=== PATIENT | male | born 1960 | race Caucasian/White ===

== ENCOUNTER 2017-08-20 07:00 | Day surgery (SDC) | payer MEDICAID ==
[2017-08-20] VITALS (20 sets, daily range): BP systolic 65–118; BP diastolic 28–72
[~2017-08-20] VITALS: Ht 160 cm; Wt 119.2 kg
[2017-08-20] MEDS ORDERED: dextrose ORAL solution 15 GM/59 ML bottle PO PRN ×2 (07:25)
[2017-08-20] MEDS ORDERED: dextrose 50%-water 50ml dispensing syringe IV PRN ×2 (07:25)
[2017-08-20] MEDS ORDERED: insulin Lispro (HumaLOG) vial - multi-dose SQ SCH (07:25)
[2017-08-20] MEDS ORDERED: glucagon, human recombinant 1mg kit SUBCUT PRN (07:25)
[2017-08-20] MEDS ORDERED: MESSAGE TO PHARMACY PO ONE (07:25)
[2017-08-20] MEDS ORDERED: LORazepam 0.5 MG tablet PO PRN (07:30)
[2017-08-20] MEDS ORDERED: diphenhydrAMINE 25mg capsule PO PRN (07:30)
[2017-08-20] MEDS ORDERED: nitroGLYCERIN 0.4mg SUBLingual tab SL PRN ×2 (07:30→11:05)
[2017-08-20] MEDS ORDERED: IBUP-1984 PO (07:51)
[2017-08-20] MEDS ORDERED: METF10002 PO (07:51)
[2017-08-20] MEDS ORDERED: AMLO10TA4 PO (07:51)
[2017-08-20] MEDS ORDERED: POTA10CA44 PO (07:51)
[2017-08-20] MEDS ORDERED: HYDR25TA4 PO (07:51)
[2017-08-20] MEDS ORDERED: CETI10TA15 PO (07:51)
[2017-08-20] MEDS ORDERED: LISI-600 PO (07:51)
[2017-08-20] MEDS ORDERED: SIMV10TA6 PO (07:51)
[2017-08-20] MEDS ORDERED: GLIM4TAB79 PO (07:51)
[2017-08-20 08:08] LABS: BASOPHILS # (AUTO) 0.1 X10'3 (0-0.2); BASOPHILS % (AUTO) 0.8 % (0-1); EOSINOPHILS # (AUTO) 0.3 X10'3 (0-0.9); EOSINOPHILS % (AUTO) 2.4 % (0-6); HEMATOCRIT 44.5 % (42.0-52.0); HEMOGLOBIN 15.2 g/dl (14.0-17.9); LYMPHOCYTES # (AUTO) 2.8 X10'3 (1.1-4.8); LYMPHOCYTES % (AUTO) 23.9 % (21-51); MEAN CORPUSCULAR HEMOGLOBIN 29.5 PG (27.0-31.0); MEAN CORPUSCULAR HGB CONC 34.2 % (33.0-36.5); MEAN CORPUSCULAR VOLUME 86.3 FL (78-98); MEAN PLATELET VOLUME 8.2 FL (7.4-10.4); MONOCYTES # (AUTO) 0.9 X10'3 (0-0.9); MONOCYTES % (AUTO) 7.7 % (2-12); NEUTROPHILS # (AUTO) 7.7 X10'3 (1.8-7.7); NEUTROPHILS % (AUTO) 65.2 % (42-75); PLATELET COUNT 368 X10'3 (140-440); RED BLOOD COUNT 5.15 X10'6 (4.70-6.10); RED CELL DISTRIBUTION WIDTH 14.5 % (11.5-14.5); WHITE BLOOD COUNT 11.8 X10'3 (4.5-11.0)
[2017-08-20 08:25] LABS: PARTIAL THROMBOPLASTIN TIME 28 SECONDS (22-32); PROTHROMBIN TIME 10.2 SECONDS (9.0-12.0)
[2017-08-20 08:29] LABS: ALBUMIN 3.8 G/DL (3.4-5.0); ANION GAP 13 (8-16); BLOOD UREA NITROGEN 28 MG/DL (7-18); BUN/CREATININE RATIO 17.3 (5.4-32.0); CHLORIDE 102 MMOL/L (99-107); CREATININE 1.62 MG/DL (0.60-1.10); GLUCOSE 168 MG/DL (70-104); POTASSIUM 4.5 MMOL/L (3.5-5.1); SODIUM 141 MMOL/L (135-145); TOTAL CARBON DIOXIDE 26.1 MMOL/L (24-32); eGFR 44 ML/MIN
[2017-08-20] MEDS: normal saline 1000ml 1,000 ML IV SCH ×2 (08:45→12:57)
[2017-08-20] MEDS ORDERED: midazolam 2 mg/2 ml injection ONE (09:00)
[2017-08-20] MEDS ORDERED: LIDOcaine 1%/PF (10mg/ml) 5ml vial ONE (09:00)
[2017-08-20] MEDS ORDERED: fentaNYL/PF 50MCG/1 ML 2ML syringe ONE (09:00)
[2017-08-20] MEDS ORDERED: iohexol 350MG/ML 100ml bottle IV ONE (09:01)
[2017-08-20] MEDS ORDERED: iohexol 350 MG/ML 50ML vial IV ONE (09:01)
[2017-08-20] MEDS ORDERED: DOPamine 400mg/D5W 250ml 250 ML IV ONE (09:42)
[2017-08-20] MEDS ORDERED: ondansetron/PF 4mg/2ml inj IV PRN (11:05)
[2017-08-20] MEDS ORDERED: OXAZEpam 15mg capsule PO PRN (11:05)
[2017-08-20] MEDS ORDERED: proCHLORperazine 10 MG/2 ml inj IV PRN (11:05)
[2017-08-20] MEDS ORDERED: DOPamine 400mg/D5W 250ml 250 ML IV SCH (11:10)
[2017-08-20] MEDS ORDERED: flumazenil 0.1 mg/ml inj. IV ONE (14:25)
[2017-08-20] MEDS ORDERED: insulin glargine (Lantus) pen - multi-dose SQ SCH (21:00)
== END 2017-08-20 15:53 | disposition home or self-care (01) ==
LOC: SSTAY O 07:00
PROVIDERS: ATTEND Internal Medicine Cardiovascular Disease
DX: I25.10 Atherosclerotic heart disease of native coronary artery without angina pectoris (principal); E11.9 Type 2 diabetes mellitus without complications; G47.33 Obstructive sleep apnea (adult) (pediatric); I10 Essential (primary) hypertension; E78.5 Hyperlipidemia, unspecified; E66.01 Morbid (severe) obesity due to excess calories; Z68.42 Body mass index [BMI] 45.0-49.9, adult; Z79.1 Long term (current) use of non-steroidal anti-inflammatories (NSAID); Z79.84 Long term (current) use of oral hypoglycemic drugs; Z79.01 Long term (current) use of anticoagulants; Z79.899 Other long term (current) drug therapy
CPT/HCPCS: 36415; 71046; 80048; 82948; 83036; 83880; 85025; 85610; 85730; 93005; 93458; 99152; 99153; A6257; C1760; C1769; J1265; J1644; J2001; J2250; J3010; J3490; J7030; Q0163; Q9967; A4620; J1815

== ENCOUNTER 2020-01-25 11:50 | Outpatient (CLI) | payer MEDICAID ==
[~2020-01-25 11:50] MED LIST: AMLO10TA4 PO; CETI10TA15 PO; GLIM4TAB7 PO; HYDR25TA4 PO; IBUP-1984 PO; LISI-600 PO; METF-438 PO; POTA10CA44 PO; SIMV10TA98 PO
== END 2020-01-25 12:30 | disposition home or self-care (01) ==
LOC: WOUND CARE 11:50 → EDSTATUS 12:00 → WOUND CARE 12:30
PROVIDERS: ATTEND Nurse Practitioner
DX: E11.65 Type 2 diabetes mellitus with hyperglycemia (principal); Z79.84 Long term (current) use of oral hypoglycemic drugs; Z79.899 Other long term (current) drug therapy
CPT/HCPCS: 36416; 82948; G0463

== ENCOUNTER 2020-01-25 13:01 | Emergency (ER) | payer MEDICAID ==
[~2020-01-25] VITALS: Ht 162.6 cm; Wt 118.2 kg
[2020-01-25 14:10] LABS: ALBUMIN 3.4 G/DL (3.4-5.0); ANION GAP 10 (8-16); BLOOD UREA NITROGEN 44 MG/DL (7-18); BUN/CREATININE RATIO 24.4 (5.4-32.0); CALCIUM 9.7 MG/DL (8.5-10.1); CHLORIDE 95 MMOL/L (99-107); POTASSIUM 4.3 MMOL/L (3.5-5.1); SODIUM 128 MMOL/L (135-145); TOTAL CARBON DIOXIDE 22.8 MMOL/L (24-32); eGFR 39 ML/MIN
[2020-01-25 14:22] LABS: GLUCOSE 533 MG/DL (70-104)
[2020-01-25] MEDS ORDERED: normal saline 1000ml 1,000 ML IV ONE ×2 (14:25)
[2020-01-25 14:45] VITALS: BP 130/98
== END 2020-01-25 14:46 | disposition home or self-care (01) ==
LOC: ER 13:01
DX: E11.65 Type 2 diabetes mellitus with hyperglycemia (principal); N17.9 Acute kidney failure, unspecified; Z79.84 Long term (current) use of oral hypoglycemic drugs; Z79.899 Other long term (current) drug therapy
CPT/HCPCS: 36415; 80048; 82948; 99283